=== PATIENT | female | born 1995 | race Caucasian/White ===

== ENCOUNTER 2016-12-03 19:46 | Emergency (ER) | payer OTHER, MEDICAID ==
[~2016-12-03] VITALS: Ht 165.1 cm; Wt 51.4 kg
[~2016-12-03 19:46] MED LIST: Docusate Sodium PO; Ibuprofen PO; Oxycodone/Acetaminophen PO
[2016-12-03 19:58] VITALS: BP 121/84; PULSE 99; RESP 16; O2SAT 100
--- NOTE | 2016-12-03 20:10 | ED.REPORT ---
HPI-Abd Pain F Under 40 Date of Service December 03, 2016 ED Provider: Erickson Robertson DO A 21 year old, possibly female with a previous breech at 39 weeks presents to the ED with vaginal bleeding that began this morning. Associated symptoms include lower abdominal pain. Patient was seen at Urgent Care this evening and was sent to the ED for further evaluation. Nursing Notes Stated Complaint: POSSIBLE MISCARRIAGE SENT FROM Chief Complaint: Female Abdominal Pain Nursing Notes Reviewed: Yes Allergies: Coded Allergies: No Known Allergies (Unverified , 11/19/13) Scheduled ([Docusate Sodium]) 100 MG CAPSULE 100 MG PO BID Scheduled PRN ([Ibuprofen]) 800 MG TABLET 800 MG PO Q8 PRN PRN For Pain ([Oxycodone/Acetaminophen]) 1 TAB TABLET 1-2 TAB PO Q4H PRN PRN For Pain General Time Seen by MD: 20:09 Chief Complaint Vaginal bleeding Hx Obtained From: Patient Arrived By: Walk-in Sudden in Onset?: No Symptom Duration: Since onset Progression since Onset: Unchanged Location: : Abdomen lower Quality: Painful Radiation: : Does not radiate Severity: Current: Moderate Severity: Maximum: Moderate Associated with: Reports: Vaginal bleeding Pertinent Negative: Pt denies other symptoms Status: test pending : 1 Para: 1 Recent Healthcare: No recent doctor visit, No recent hospitalization Risk Factors Ectopic Risk Stratification No risk factors Past Medical History Past Medical History Breeched at 39 weeks Past Surgical History 1. Thirty-nine week gestation. 2. Breech presentation. 3. Bicornuate uterus. Smoking History Former Smoker Social History Drug Use: Denies drug use Other Social History: Good social support, Local resident Ambulatory Status Independent Review of Systems Constitutional: Denies: Chills, Fatigue, Fever, Malaise, Recent wt loss Respiratory: Denies: Dyspnea on exertion, Shortness of breath, Wheezing Cardiovascular: Denies: Chest pain, Edema, Palpitations, Syncope GI: Denies: Abdominal pain, Anorexia, Belching, Bloody/tarry stool, Constipation, Diarrhea, Dysphagia, Nausea, Rectal pain, Vomiting Female: Reports: Pelvic pain (right side), Vaginal bleeding - abnl, Denies: Dysuria, Flank pain, Hematuria, , Urinary frequency, Urinary urgency Musculoskeletal: Denies: Back pain, Extremity pain, Extremity swelling, Joint pain, Joint swelling Physical Exam Initial Vital Signs Vital Signs (First) Date Time Temp Pulse Resp B/P Pulse Ox O2 Delivery O2 Flow Rate FiO2 12/03/16 19:58 37 99 16 121/84 100 12/03/16 22:15 Room Air Initial VS: Reviewed, Vital signs normal Head / Eyes: Atraumatic, Normocephalic, PERRL ENT: Mucous membranes moist, Conjunctiva normal, No scleral icterus Neck: Supple, Non-tender, Full range of motion Lymphatic: No lymphadenopathy Extremities: Vascular intact, Neuro intact, No swelling, No tenderness Skin: Warm, Dry, No cyanosis Neurologic: Alert, Oriented, Nonfocal Psychiatric: Mood/affect normal, Behavior normal, Normal thought content General/Constitutional: Awake, Alert, No acute distress, Well appearing, Well developed, Well hydrated, Well nourished, Cooperative Respiratory / Chest: Atraumatic, Breath sounds NL, Breath sounds = bilat, No wheezing Cardiovascular: Heart rate NL, Regular rhythm, No murmurs Abdomen: Atraumatic, Soft, No guarding, No rebound, BS normoactive Tenderness/Guarding/Rebound: Positive: Tender RLQ... (Mild), Tender suprapubic Head / Eyes: Atraumatic, Normocephalic, PERRL, EOMI Female Genitourinary: Patient refused exam Psychiatric: Affect NL, Mood NL Interpretation & Diagnostics Lab Results Interpretation Result Diagram: 12/03/16203412/03/162034 Test 12/03/16 20:35 12/03/16 20:37 White Blood Count 6.0th/mm3 (3.8-10.1) Red Blood Count 4.33mil/mm3 (3.90-5.20) Hemoglobin 13.1g/dL (12.0-15.6) Hematocrit 38.4% (35.0-46.0) Mean Corpuscular Volume 88.7fL (81-100) Mean Corpuscular Hemoglobin 30.3pg (27.0-35.0) Mean Corpuscular Hemoglobin Concent 34.1% (32.0-37.0) Red Cell Distribution Width 12.3% (12.3-15.4) Platelet Count 213bil/L (150-400) Neutrophils (%) (Auto) 52.8% (40-74) Lymphocytes (%) (Auto) 37.9% (14-46) Monocytes (%) (Auto) 7.6% (4-12) Eosinophils (%) (Auto) 0.8% (0-5) Basophils (%) (Auto) 0.7% (0-3) Sodium Level 136mEq/L (134-144) Potassium Level 3.8mEq/L (3.5-5.2) Chloride Level 99mEq/L (97-108) Carbon Dioxide Level 20mmol/L (18-29) Blood Urea Nitrogen 7mg/dL (6-20) Creatinine 0.63mg/dL (0.57-1.00) Estimat Glomerular Filtration Rate 169mL/min (>59) Glucose Level 79mg/dL (60-99) Calcium Level 9.5mg/dL (8.5-10.1) Magnesium Level 1.9mg/dL (1.6-2.6) Total Bilirubin 0.4mg/dL (0.0-1.2) Aspartate Amino Transf (AST/SGOT) 21U/L (0-50) Alanine Aminotransferase (ALT/SGPT) 16U/L (0-32) Alkaline Phosphatase 38U/L (25-150) Total Protein 7.4g/dL (6.4-8.4) Albumin 4.3g/dL (3.4-5.0) Lipase 30U/L (13-60) HCG Beta Subunit < 0.500mIU/mL Hold Snider Top Tube Received (Received) Hold Urine Received (Received) Lab values outside NL range: no clinical significance. General Lab Results Interp 2: HCG serum - preg test neg US Focused non-OB Pelvis Normal endometrial thickness. Trace fluid in the endometrial cavity. Normal right ovary. Left ovary not visualized. Exam Performed by: Radiologist Re-Eval/Medical Decision Med Decision/Clinical Course Med Decision/Clinical Course: 21 year old female presented with vaginal bleeding and right sided pelvic cramping. Urine test negative. CBC and CMP unremarkable. US pelvis/transvaginal revealed trace fluid in the endometrial cavity. Otherwise normal. Appendix not visualized but acute appendicitis unlikely based on presentation and clinical exam. Counseled Regarding: Diagnosis, Lab results, Need for follow-up, When/why to return to ED Discharge & Departure Shift Change Sign-Out Response to Therapy: Improved Primary Impression: Vaginal bleeding Additional Impression: Pelvic pain Disposition: Home Discharge Condition Condition: Stable Additional Instructions: Thank you for seeking care at emergency room today. You are not , so miscarriage is ruled out. Your vaginal bleeding is most likely attributed to your periods, and your pelvic cramping is most likely due to your periods or ruptured simple ovarian cyst. we do not believe that you have an acute appendicitis, but please return to emergency room for further evaluation if you develop fever, nausea, vomiting, severe abdominal pain, etc. Please follow up with your PCP within the next week or two. You can take pain medication for abdominal cramping as needed. You can try to apply warm compress for pain relief as well. See your PCP earlier if symptoms do not improve. Thank you for letting us partake in your care today. Referrals: Alanna Saravia MD (PCP) EDSupervising Provider for APC: Erickson Robertson DO Attending Statment I took the history and performed an exam. I concur with the plan as outlined above. copies to: Alanna Saravia MD, Todd P DO December 03, 2016 20:10 AARTI PAINTING December 03, 2016 20:19 Kenzie Gilman DO December 03, 2016 21:07
[2016-12-03 20:53] LABS: BASOPHILS % (AUTO) 0.7 % (0-3); EOSINOPHILS % (AUTO) 0.8 % (0-5); MONOCYTES % (AUTO) 7.6 % (4-12); Mean Corpuscular Hemoglobin 30.3 pg (27.0-35.0); Mean Corpuscular Volume 88.7 fL (81-100); NEUTROPHILS % (AUTO) 52.8 % (40-74); Platelet Count 213 bil/L (150-400)
[2016-12-03 21:23] LABS: Magnesium 1.9 mg/dL (1.6-2.6)
[2016-12-03 22:15] VITALS: BP 135/89; PULSE 81; RESP 16; O2SAT 99
[2016-12-04 00:01] VITALS: BP 131/83; PULSE 89; RESP 20; O2SAT 99
--- NOTE | 2016-12-04 08:53 | DRSVH ---
PROCEDURE: US PELVIC SONOGRAM + TRANSVAGINAL SONOGRAM INDICATIONS: RLQ pain, vaginal bleeding TECHNIQUE: Real-time scanning was performed of the pelvic organs, with image documentation. Additional endovagi nal scanning was necessary due to incomplete visualization of the adnexal and endometrial structures by transabdominal scanning. COMPARISON: None. FINDINGS: (orthogonal measurements) Uterus size: 8.42 cm, 3.62 cm, 4.10 cm Endometrium thickness: 1-2 mm Right ovary size: 1.74 cm, 2.52 cm, 1.66 cm Left ovary size: Not visualized Transabdominal scanning: Limited scanning through the kidneys shows no hydronephrosis. No pathologi c free abdominal or pelvic fluid. Endovaginal scanning: Uterus: Uterus is normal in size and appearance. Endometrium is within normal physiologic limits. T here is mild nonspecific fluid within the endometrial cavity of doubtful clinical significance. Ovaries: Left ovary not visualized. Right ovarian vascularity present with Doppler interrogation IMPRESSION: Normal appearance of the right ovary. Left ovary not visualized. Dictated by: Lenin Ceron M.D. on 12/04/2016 at 8:49 Approved by: Lenin Ceron M.D. on 12/04/2016 at 8:52
== END 2016-12-04 00:02 | disposition home or self-care (01) ==
LOC: SED 19:46
DX: N93.9 Abnormal uterine and vaginal bleeding, unspecified (principal); R10.2 Pelvic and perineal pain; Z87.891 Personal history of nicotine dependence